=== PATIENT | female | born 1940 | race African-American/Black ===

== ENCOUNTER 2018-07-30 00:30 | Observation (INO) | payer OTHER ==
--- NOTE | 2018-07-30 01:07 | PDOC ---
History of Present Illness - General Chief Complaint: Lightheaded Stated Complaint: BLOOD PRESSURE PROBLEM Time Seen by Provider: 07/30/18 00:42 History Source: Patient Exam Limitations: No Limitations - History of Present Illness Initial Comments: 07/30/18 01:01 78 yo F with a hx of glaucoma, HTN, and osteoarthritis presents to the emergency department with shaking that began today followed by generalized weakness and "fogginess". Per the patient, she states she has been shaking but denies hx of seizures. She state she feels chills, but denies fever. Per the patient, she has had a hx of TIAs with the most recent 4-5 years ago without history of CVA. The abrupt onset of weakness was followed by confusion and frequent urinary episodes without control. 07/30/18 03:13 Past History - Past Medical History Allergies/Adverse Reactions: Allergies Allergy/AdvReac Type Severity Reaction Status Date / Time No Known Allergies Allergy Verified 07/30/18 00:38 Home Medications: Ambulatory Orders Amlodipine Besylate 10 mg PO DAILY 07/30/18 Diazepam 2 mg PO PRN PRN 07/30/18 Hydrochlorothiazide 12.5 mg PO DAILY 07/30/18 COPD: No HTN: Yes Psychiatric Problems: Yes - Suicide/Smoking/Psychosocial Hx Smoking History: Never smoked *Physical Exam - Vital Signs Last Vital Signs Temp Pulse Resp BP Pulse Ox 97.5 F L 107 H 18 161/57 L 99 07/30/18 00:36 07/30/18 00:36 07/30/18 00:36 07/30/18 00:36 07/30/18 00:36 ED Treatment Course - LABORATORY CBC & Chemistry Diagram: 07/30/18 01:15 07/30/18 01:15 *DC/Admit/Observation/Transfer Diagnosis at time of Disposition: Altered mental status Qualifiers: Altered mental status type: unspecified Qualified Code(s): R41.82 - Altered mental status, unspecified - Referrals - Patient Instructions - Post Discharge Activity
[2018-07-30] MEDS ORDERED: ACETAMINOPHEN 1000 MG/100 ML VIAL (NON FORMULARY) IVPB ONE (01:09)
[2018-07-30] MEDS ORDERED: ACETAMINOPHEN INJECTION 100 ML IVPB ONE (01:11)
[2018-07-30 01:38] LABS: EPI CELLS 0.5 /HPF (0-5/HPF); PH,URINE 7.5 (5.0-8.0); URINE APPEARANCE CLEAR; URINE BACTERIA 3.9 /hpf (NEGATIVE); URINE BILIRUBIN NEGATIVE (NEGATIVE); URINE CASTS 0 /lpf (0-8); URINE COLOR YELLOW; URINE GLUCOSE (UA) 2+ (NEGATIVE); URINE KETONE NEGATIVE (NEGATIVE); URINE LEUK ESTERASE NEGATIVE (NEGATIVE); URINE NITRITE NEGATIVE (NEGATIVE); URINE PROTEIN NEGATIVE (NEGATIVE); URINE RBC 2 /hpf (0-4); URINE UROBILINOGEN 0.2 mg/dL (0.2-1.0); URINE WBC 1 /hpf (0-5)
[2018-07-30 01:54] LABS: BASO % 1.3 % (0-2.0); EOS % 2.2 % (0-4.5); HEMATOCRIT 38.5 % (32.4-45.2); HEMOGLOBIN 12.4 GM/dL (10.7-15.3); LYMPH % 27.4 % (8-40); MCH 28.9 pg (25.7-33.7); MCHC 32.1 g/dl (32.0-36.0); MEAN CELL VOLUME 90.1 fl (80-96); MEAN PLT VOLUME 9.3 fl (7.5-11.1); MONO % 7.8 % (3.8-10.2); NEUT % 61.3 % (42.8-82.8); PLATELET COUNT 250 K/MM3 (134-434); RBC 4.27 M/mm3 (3.60-5.2); RDW 14.3 % (11.6-15.6); WHITE BLOOD COUNT 6.9 K/mm3 (4.0-10.0)
[2018-07-30 02:09] LABS: ALBUMIN 3.5 g/dl (3.4-5.0); ALK PHOS 70 U/L (45-117); ANION GAP 6 MMOL/L (8-16); BILIRUBIN,TOTAL 0.3 mg/dL (0.2-1); BLOOD UREA NITROGEN 14 mg/dL (7-18); CALCIUM 9.2 mg/dL (8.5-10.1); CHLORIDE 105 mmol/L (98-107); CO2 28 mmol/L (21-32); CREATININE 0.7 mg/dL (0.55-1.3); GLUCOSE,RANDOM 169 mg/dL (74-106); POTASSIUM 3.3 mmol/L (3.5-5.1); SGOT/AST 18 U/L (15-37); SGPT/ALT 23 U/L (13-61); SODIUM 138 mmol/L (136-145); TOT PROT 7.1 g/dl (6.4-8.2)
[2018-07-30] MEDS ORDERED: SODIUM CHLORIDE 1,000 ML IV STA (02:16)
--- NOTE | 2018-07-30 02:30 | PDOC ---
Documentation entered by Reema Chapa SCRIBE, acting as scribe for Flory Headley DO. Flory Headley DO: This documentation has been prepared by the Sammi mackey Nirvannie, SCRIBE, under my direction and personally reviewed by me in its entirety. I confirm that the documentation accurately reflects all work, treatment, procedures, and medical decision making performed by me. Attending Attestation - Resident Resident Name: Hari Reyez - ED Attending Attestation I have performed the following: I have examined & evaluated the patient, The case was reviewed & discussed with the resident, I agree w/resident's findings & plan - HPI HPI: 07/30/18 02:01 The patient is a 78 year old female, with a significant past medical history of glaucoma, HTN, and osteoarthritis, who presents to the emergency department with , body shaking and urinary frequency. She denies any chest pain or SOB. Allergies: NKDA - Physicial Exam PE: 07/30/18 02:01 Agree with resident exam. - Medical Decision Making 07/30/18 02:16 EXAM: HEAD CT WITHOUT CONTRAST HISTORY: Headache right side COMPARISON: None. FINDINGS: Involutional changes. Fairly advanced chronic microvascular changes in the cerebral white matter. No obvious infarct. However microvascular disease can obscure white matter infarcts. No hemorrhage. No mass. Osseous structures are intact. Read by: Kirby Wong MD 07/30/18 02:27 78-year-old female with varying complaints, most specifically weakness and increased urination Labs and imaging were reviewed and did not reveal a cause for patient's symptoms Plan for admission to medical service for evaluation of TIA versus altered mental status secondary to dementia
--- NOTE | 2018-07-30 04:43 | HP ---
CHIEF COMPLAINT: weakness HISTORY OF PRESENT ILLNESS: 78 yo F with a hx of glaucoma, HTN, TIA, and osteoarthritis, ?heart disease, presents to the emergency department with shaking that began today at 3pm after she ate lunch. Reports generalized weakness and her not feeling like herself. States that she felt severe anxiety because she knew that she was alone without anyone to take care of her, felt more weakness and inability to ambulate properly. At that point she took lorazepam that she was prescribed for anxiety attacks by her doctor in [place]. Reports pain in her R knee. States that this has happened before, for which she was seen in a hospital in [place] and told she had TIAs. Currently feels much better and denies chest pain, shortness of breath, nausea, vomiting, diarrhea, fevers or chills. Does report continued gait instability and mildly "off". States that she is incontinent. Recently traveled from [place]. No sick contacts. Recent Travel: PAST MEDICAL HISTORY: glaucoma, HTN, TIA, and osteoarthritis, ?heart disease, PAST SURGICAL HISTORY: back and spine surgeries, ovarian CA resection s/p hysterectomy, Social History: Smoking: denies Alcohol: denies Drugs: denies Family History: Allergies Penicillins Allergy (Verified 07/30/18 04:10) HOME MEDICATIONS: Home Medications Medication Instructions Recorded Amlodipine Besylate 10 mg PO DAILY 07/30/18 Diazepam 2 mg PO PRN PRN 07/30/18 Hydrochlorothiazide 12.5 mg PO DAILY 07/30/18 REVIEW OF SYSTEMS CONSTITUTIONAL: Absent: fever, chills, diaphoresis, generalized weakness, malaise, loss of appetite, weight change HEENT: Absent: rhinorrhea, nasal congestion, throat pain, throat swelling, difficulty swallowing, mouth swelling, ear pain, eye pain, visual changes CARDIOVASCULAR: Absent: chest pain, syncope, palpitations, irregular heart rate, lightheadedness , peripheral edema RESPIRATORY: Absent: cough, shortness of breath, dyspnea with exertion, orthopnea, wheezing, stridor, hemoptysis GASTROINTESTINAL: Absent: abdominal pain, abdominal distension, nausea, vomiting, diarrhea, constipation, melena, hematochezia GENITOURINARY: Absent: dysuria, frequency, urgency, hesitancy, hematuria, flank pain, genital pain MUSCULOSKELETAL: Absent: myalgia, arthralgia, joint swelling, back pain, neck pain SKIN: Absent: rash, itching, pallor HEMATOLOGIC/IMMUNOLOGIC: Absent: easy bleeding, easy bruising, lymphadenopathy, frequent infections ENDOCRINE: Absent: unexplained weight gain, unexplained weight loss, heat intolerance, cold intolerance NEUROLOGIC: unsteady gait, bladder incontinence Absent: headache, focal weakness or paresthesias, dizziness, seizure, mental status changes, PSYCHIATRIC: Absent: anxiety, depression, suicidal or homicidal ideation, hallucinations. PHYSICAL EXAMINATION Vital Signs - 24 hr 07/30/18 07/30/18 07/30/18 00:36 02:35 02:41 Temperature 97.5 F L 98.6 F Pulse Rate 107 H Pulse Rate [ 93 H Radial] Respiratory 18 20 Rate Blood Pressure 161/57 L Blood Pressure 140/68 [Left Arm] O2 Sat by Pulse 99 99 Oximetry (%) 07/30/18 03:51 Temperature Pulse Rate Pulse Rate [ 90 Radial] Respiratory Rate Blood Pressure Blood Pressure [Left Arm] O2 Sat by Pulse Oximetry (%) GENERAL: A&Ox3, no acute distress EYES: PERRLA, EOMI ENT: Moist mucus membranes NECK: No JVD LUNGS: CTA, no wheezes HEART: RRR, no murmurs ABDOMEN: Soft, nontender, BS present MUSCULOSKELETAL: No CVA Tenderness EXTREMITIES: 2+ pulses, no edema. NEUROLOGICAL: Cranial nerves II-XII intact. Motor strength 5/5 upper extremities, 3/5 lower extremities. shuffling unstable gait noted Laboratory Results - last 24 hr 07/30/18 07/30/18 07/30/18 01:15 01:15 01:30 WBC 6.9 RBC 4.27 Hgb 12.4 Hct 38.5 MCV 90.1 MCH 28.9 MCHC 32.1 RDW 14.3 Plt Count 250 MPV 9.3 Absolute Neuts (auto) 4.2 Neutrophils % 61.3 Lymphocytes % 27.4 Monocytes % 7.8 Eosinophils % 2.2 Basophils % 1.3 Nucleated RBC % 0 Sodium 138 Potassium 3.3 L Chloride 105 Carbon Dioxide 28 Anion Gap 6 L BUN 14 Creatinine 0.7 Est GFR (CKD-EPI)AfAm 96.18 Est GFR (CKD-EPI)NonAf 82.99 Random Glucose 169 H Calcium 9.2 Total Bilirubin 0.3 AST 18 ALT 23 Alkaline Phosphatase 70 Ammonia Creatine Kinase 77 Troponin I < 0.02 Total Protein 7.1 Albumin 3.5 TSH 2.39 Urine Color Yellow Urine Appearance Clear Urine pH 7.5 Ur Specific [place] 1.006 L Urine Protein Negative Urine Glucose (UA) 2+ H Urine Ketones Negative Urine Blood Trace Urine Nitrite Negative Urine Bilirubin Negative Urine Urobilinogen 0.2 Ur Leukocyte Esterase Negative Urine WBC (Auto) 1 Urine RBC (Auto) 2 Urine Casts (Auto) 0 U Epithel Cells (Auto) 0.5 Urine Bacteria (Auto) 3.9 07/30/18 03:24 WBC RBC Hgb Hct MCV MCH MCHC RDW Plt Count MPV Absolute Neuts (auto) Neutrophils % Lymphocytes % Monocytes % Eosinophils % Basophils % Nucleated RBC % Sodium Potassium Chloride Carbon Dioxide Anion Gap BUN Creatinine Est GFR (CKD-EPI)AfAm Est GFR (CKD-EPI)NonAf Random Glucose Calcium Total Bilirubin AST ALT Alkaline Phosphatase Ammonia 32.00 Creatine Kinase Troponin I Total Protein Albumin TSH Urine Color Urine Appearance Urine pH Ur Specific [place] Urine Protein Urine Glucose (UA) Urine Ketones Urine Blood Urine Nitrite Urine Bilirubin Urine Urobilinogen Ur Leukocyte Esterase Urine WBC (Auto) Urine RBC (Auto) Urine Casts (Auto) U Epithel Cells (Auto) Urine Bacteria (Auto) ASSESSMENT/PLAN: 78 yo F with a hx of glaucoma, HTN, TIA, and osteoarthritis, ?heart disease, presented to the emergency department for weakness and unsteadiness with anxiety #Weakness: and unsteadiness, initially was possibly due to anxiety attack as before, but we are concerned due to patient's alleged history of TIA in addition to unstead gait. -EKG shows sinus tachycardia with 1st degree AV block -CT head negative for acute process -Get MRI head and lumbar spine for weakness -physical therapy -cardiac monitoring -echocardiogram -carotid dopplers -not highly suspicious for TIA, but will give dose ASA now -lipid panel -B12/folate/RPR ordered -A1C ordered #Hypertension: patient was mildly hypertensive most recently 140/68 -continue home amlodipine 10 #Anxiety -continue valium 2mg Q4h PRN anxiety #FEN -no standing fluids -electrolytes normal -diabetic diet #Prophylaxis -heparin 5000 SubQ #Disposition -admit tele obs Visit type - Emergency Visit Emergency Visit: Yes ED Registration Date: 07/30/18 Care time: The patient presented to the Emergency Department on the above date and was hospitalized for further evaluation of their emergent condition. - New Patient This patient is new to me today: Yes Date on this admission: 07/30/18 - Critical Care Critical Care patient: No
[2018-07-30] MEDS ORDERED: diazePAM 2 MG TABLET PO PRN ×2 (05:51→06:16)
[2018-07-30] MEDS ORDERED: ASPIRIN 81 MG CHEWABLE TABLETS PO ONE (06:02)
--- NOTE | 2018-07-30 06:02 | PN ---
Teaching Attending Note Name of Resident: Kentrell Bradford ATTENDING PHYSICIAN STATEMENT I saw and evaluated the patient. I reviewed the resident's note and discussed the case with the resident. I agree with the resident's findings and plan as documented. SUBJECTIVE: Seen and examined; please refer to resident note for further historical information. Briefly, this is a 78 y/o female with a PMH as documented presenting to the ER for a host of symptoms; suddenly she had sx consistent with a panic attack (nervousness, difficulty swallowing, palpitations, full body weakness). She has had these issues before, and the issues had been more severe at that time, when she was admitted to a hospital in [place] > 1 year ago with what she tells us was a TIA. She continues to have marked gait disturbances here with shuffling which is new to her though the weakness she had is not necessarily focal. No recent back trauma, no saddle anesthesia. Has been having frequency with urine but not dysuria and unremarkable UA. No fecal intontenance, etc. She did try some diazepam for her sx at home (prescribed to her for what sounds to be panic disorder from physician in [place]) but didn't have resolution. No seizure activity. 10 sys ROS done and negative aside from HPI PMH (glacoma, HTN, OA, remote hx seizures), PSH, FH, SH reviewed Home Medications Medication Instructions Recorded Amlodipine Besylate 10 mg PO DAILY 07/30/18 Diazepam 2 mg PO PRN PRN 07/30/18 Hydrochlorothiazide 12.5 mg PO DAILY 07/30/18 OBJECTIVE: VS, labs, imaging reviewed NAD, AAO, resting comfortably in bed NC AT EOMI PERRLA RRR s1/2 no mgr Lungs CTAB, w/ sym exp NT ND +BS CN2-12 wnl, shuffling gait, R-leg hesitancy likely 2/2 msk pain Normal mood, appropriate behavior CT head prelim report with microvascular disease MRI brain and L spine pending CXR reviewed ASSESSMENT AND PLAN: Patient presented with panic attack and gait abnormality similar to episode she had 2 years ago in [place]; we are pending old records. 1) Weakness with gait abnormality -Noted to be new by patient; as sudden onset (but without focal weakness) will at least check brain MRI. Would have been outside window for any tPA by the time we were called. History of seizures noted but given lack of seizure activity makes this less likely. -Given gait issue check MRI L-spine and consult PT. -Can consider echo and carotid doppler, but as this is not presenting as a yeimy TIA with focal deficits, etc. would like to followup the MRI first. She likely had echo and dopplers down in [place] so should check those old records as well -Checking TSH, RPR, B12 -Neuro checks and seizure precautions. Consider neuro consultation and other items on ddx. 2) Panic Disorder -PRN Diazepam -Consider SNRI, etc. prior to DC alongside local psych referral. 3) Hx HTN -Verify and continue home meds. 4) Urinary frequency -Negative UA for infection; consider diabetic nephropathy.
[2018-07-30 08:19] LABS: HEMATOCRIT 36.3 % (32.4-45.2); HEMOGLOBIN 11.8 GM/dL (10.7-15.3); MCH 29.2 pg (25.7-33.7); MCHC 32.5 g/dl (32.0-36.0); MEAN CELL VOLUME 89.7 fl (80-96); MEAN PLT VOLUME 8.6 fl (7.5-11.1); PLATELET COUNT 254 K/MM3 (134-434); RBC 4.04 M/mm3 (3.60-5.2); RDW 14.6 % (11.6-15.6); WHITE BLOOD COUNT 5.2 K/mm3 (4.0-10.0)
[2018-07-30 09:13] LABS: CALCIUM 8.9 mg/dL (8.5-10.1); CREATININE 0.6 mg/dL (0.55-1.3); MAGNESIUM 2.1 mg/dL (1.8-2.4); POTASSIUM 3.4 mmol/L (3.5-5.1)
[2018-07-30] MEDS ORDERED: HYDROCHLOROTHIAZIDE 12.5 MG CAPSULE (FP) PO SCH (10:00)
[2018-07-30] MEDS ORDERED: amLODIPine BESYLATE 5 MG TABLET (FP) ONE (10:03)
[2018-07-30] MEDS ORDERED: HYDROCHLOROTHIAZIDE 25 MG TABLET (FP) ONE ×2 (10:04→10:15)
[2018-07-30] MEDS: amLODIPine BESYLATE 10 MG TABLET (FP) PO SCH (10:09)
--- NOTE | 2018-07-30 10:47 | EKG ---
Test Reason : Blood Pressure : / mmHG Vent. Rate : 107 BPM Atrial Rate : 107 BPM P-R Int : 216 ms QRS Dur : 088 ms QT Int : 342 ms P-R-T Axes : 072 -20 071 degrees QTc Int : 456 ms SINUS TACHYCARDIA WITH 1ST DEGREE A-V BLOCK RIGHT ATRIAL ENLARGEMENT BORDERLINE ECG NO PREVIOUS ECGS AVAILABLE Confirmed by SEVERO CURRIE MD ([id number]) on 07/30/2018 10:46:48 AM Referred By: Flynn SOTELO Confirmed By:SEVERO CURRIE MD
--- NOTE | 2018-07-30 13:30 | ECHO ---
Name: CINDI PALMA Exam:Adult Echocardiogram Study Date: 07/30/2018 08:50 AM Age: 78 yrs Height: 64 in Weight: 200 lb BSA: 2.0 m2 MMode/2D Measurements & Calculations IVSd: 1.1 cm Ao root diam: 2.8 cm LVIDd: 4.5 cm LA dimension: 3.4 cm LVIDs: 3.2 cm LVPWd: 0.77 cm EDV(Teich): 94.6 ml LVOT diam: 2.0 cm ESV(Teich): 41.9 ml Doppler Measurements & Calculations MV E max armin: 57.3 cm/sec Ao V2 max: 153.2 cm/sec MV A max armin: 92.3 cm/sec Ao max P.4 mmHg MV E/A: 0.62 Ao V2 mean: 97.2 cm/sec MV dec time: 0.22 sec Ao mean P.5 mmHg Ao V2 VTI: 27.1 cm BETZY(I,D): 2.9 cm2 BETZY(V,D): 2.3 cm2 LV V1 max P.4 mmHg SV(LVOT): 77.2 ml LV V1 mean P.2 mmHg LV V1 max: 115.7 cm/sec LV V1 mean: 84.4 cm/sec LV V1 VTI: 25.6 cm TR max armin: 230.1 cm/sec Med Peak E' Armin: 6.3 cm/sec TR max P.2 mmHg Med E/e': 9.0 Lat Peak E' Armin: 9.8 cm/sec Lat E/e': 5.8 Procedure A two-dimensional transthoracic echocardiogram with color flow and Doppler was performed. Left Ventricle The left ventricular size, thickness and function are normal. The left ventricular ejection fraction is normal. E/A reversal consistent with but not diagnostic of poor LV compliance. The left ventricular w all motion is normal. Right Ventricle The right ventricle is normal in size and function. Atria Normal left and right atrial size and function. Mitral Valve The mitral valve is normal in structure and function. There is no mitral valve stenosis. There is tra ce to mild mitral regurgitation. Tricuspid Valve The tricuspid valve is normal in structure and function. There is no tricuspid stenosis. There is mil d tricuspid regurgitation. Right ventricular systolic pressure is normal. Aortic Valve The aortic valve is not well visualized. No hemodynamically significant valvular aortic stenosis. No aortic regurgitation is present. Pulmonic Valve The pulmonic valve is not well visualized. Great Vessels The aortic root is normal size. Pericardium/Pleura There is no pericardial effusion. Interpretation Summary The left ventricular size, thickness and function are normal The left ventricular ejection fraction is normal. The left ventricular wall motion is normal. There is trace to mild mitral regurgitation. E/A reversal consistent with but not diagnostic of poor LV compliance MD Jacinto Mcgee 07/30/2018 01:30 PM
[2018-07-30] MEDS: HEPARIN NA (PORCINE) 5,000 UNITS/ML 1ML VIAL SQ SCH ×2 (14:06→21:42)
[2018-07-30] MEDS ORDERED: POTASSIUM CHLORIDE TABS 20 MEQ TABLET.ER (FP) PO ONE ×2 (15:15→17:06)
--- NOTE | 2018-07-30 15:19 | PN ---
Physical Exam: SUBJECTIVE: Patient seen and examined this AM. She states she is still feeling somewhat foggy with some mild dizziness, however she is feeling better today than yesterday. OBJECTIVE: Vital Signs Period Temp Pulse Resp BP Sys/[place] Pulse Ox Last 24 Hr 97.5 F-98.6 F 82-107 18-20 126-164/57-82 97-100 GEN: A&OX3, no acute distress HEENT: Moist mucus membranes HEART: Systolic murmur noted, RRR LUNGS: CTA b/l, no wheezes noted ABDOMEN: Soft, nontender to palpation NEURO: CN II-XII in tact, no focal deficits, 5/5 strength, normal sensation, ( normal gait observed by nursing staff) EXTREMITIES: No peripheral edema or calf tenderness Laboratory Results - last 24 hr 07/30/18 07/30/18 07/30/18 01:15 01:15 01:30 WBC 6.9 RBC 4.27 Hgb 12.4 Hct 38.5 MCV 90.1 MCH 28.9 MCHC 32.1 RDW 14.3 Plt Count 250 MPV 9.3 Absolute Neuts (auto) 4.2 Neutrophils % 61.3 Lymphocytes % 27.4 Monocytes % 7.8 Eosinophils % 2.2 Basophils % 1.3 Nucleated RBC % 0 Sodium 138 Potassium 3.3 L Chloride 105 Carbon Dioxide 28 Anion Gap 6 L BUN 14 Creatinine 0.7 Est GFR (CKD-EPI)AfAm 96.18 Est GFR (CKD-EPI)NonAf 82.99 Random Glucose 169 H Hemoglobin A1c % Calcium 9.2 Magnesium Total Bilirubin 0.3 AST 18 ALT 23 Alkaline Phosphatase 70 Ammonia Creatine Kinase 77 Troponin I < 0.02 Total Protein 7.1 Albumin 3.5 Triglycerides Cholesterol Total LDL Cholesterol HDL Cholesterol Vitamin B12 TSH 2.39 Urine Color Yellow Urine Appearance Clear Urine pH 7.5 Ur Specific [place] 1.006 L Urine Protein Negative Urine Glucose (UA) 2+ H Urine Ketones Negative Urine Blood Trace Urine Nitrite Negative Urine Bilirubin Negative Urine Urobilinogen 0.2 Ur Leukocyte Esterase Negative Urine WBC (Auto) 1 Urine RBC (Auto) 2 Urine Casts (Auto) 0 U Epithel Cells (Auto) 0.5 Urine Bacteria (Auto) 3.9 RPR Titer 07/30/18 07/30/18 07/30/18 03:24 08:05 08:05 WBC 5.2 RBC 4.04 Hgb 11.8 Hct 36.3 MCV 89.7 MCH 29.2 MCHC 32.5 RDW 14.6 Plt Count 254 MPV 8.6 Absolute Neuts (auto) Neutrophils % Lymphocytes % Monocytes % Eosinophils % Basophils % Nucleated RBC % Sodium Potassium Chloride Carbon Dioxide Anion Gap BUN Creatinine Est GFR (CKD-EPI)AfAm Est GFR (CKD-EPI)NonAf Random Glucose Hemoglobin A1c % 6.5 H Calcium Magnesium Total Bilirubin AST ALT Alkaline Phosphatase Ammonia 32.00 Creatine Kinase Troponin I Total Protein Albumin Triglycerides Cholesterol Total LDL Cholesterol HDL Cholesterol Vitamin B12 TSH Urine Color Urine Appearance Urine pH Ur Specific [place] Urine Protein Urine Glucose (UA) Urine Ketones Urine Blood Urine Nitrite Urine Bilirubin Urine Urobilinogen Ur Leukocyte Esterase Urine WBC (Auto) Urine RBC (Auto) Urine Casts (Auto) U Epithel Cells (Auto) Urine Bacteria (Auto) RPR Titer 07/30/18 07/30/18 08:05 08:05 WBC RBC Hgb Hct MCV MCH MCHC RDW Plt Count MPV Absolute Neuts (auto) Neutrophils % Lymphocytes % Monocytes % Eosinophils % Basophils % Nucleated RBC % Sodium 144 Potassium 3.4 L Chloride 106 Carbon Dioxide 32 Anion Gap 6 L BUN 10 Creatinine 0.6 Est GFR (CKD-EPI)AfAm 101.18 Est GFR (CKD-EPI)NonAf 87.30 Random Glucose 115 H Hemoglobin A1c % Calcium 8.9 Magnesium 2.1 Total Bilirubin AST ALT Alkaline Phosphatase Ammonia Creatine Kinase Troponin I Total Protein Albumin Triglycerides 94 Cholesterol 225 H Total LDL Cholesterol 130 H HDL Cholesterol 82 H Vitamin B12 549 TSH Urine Color Urine Appearance Urine pH Ur Specific [place] Urine Protein Urine Glucose (UA) Urine Ketones Urine Blood Urine Nitrite Urine Bilirubin Urine Urobilinogen Ur Leukocyte Esterase Urine WBC (Auto) Urine RBC (Auto) Urine Casts (Auto) U Epithel Cells (Auto) Urine Bacteria (Auto) RPR Titer Nonreactive Active Medications Generic Name Dose Route Start Last Admin Trade Name Freq PRN Reason Stop Dose Admin Amlodipine Besylate 10 mg 07/30/18 10:00 07/30/18 10:09 Norvasc - PO 10 mg DAILY HANS Administration Diazepam 2 mg 07/30/18 06:16 Valium - PO Q8H PRN ANXIETY Heparin Sodium (Porcine) 5,000 unit 07/30/18 14:00 07/30/18 14:06 Heparin - SQ 5,000 unit TID HANS Administration Hydrochlorothiazide 12.5 mg 07/30/18 10:00 07/30/18 10:09 Hctz - PO 12.5 mg DAILY HANS Administration Potassium Chloride 40 meq 07/30/18 15:15 K-Dur - PO 07/30/18 15:16 ONCE ONE ASSESSMENT/PLAN: 78 yo F with a hx of glaucoma, HTN, Panic Disorder, TIA, and osteoarthritis, ? heart disease, presented to the emergency department for weakness and unsteadiness with anxiety Weakness and Unsteady Gait -Pt states symptoms have improved at this point -continue to monitor on tele -ECHO with trace MR -Orthostatic vitals ordered -B12 pending -RPR negative -CT head without any concerning findings -PT eval pending Panic Disorder -Continue home valium for now -Pt should follow up with primary to start SSRI HTN -Continue home Norvasc and HCTZ DVT Prophylaxis -Heparin 5000 units SQ TID FEN -none -monitor and replete -Diabetic Diet Disposition Telemetry Observation Visit type - Emergency Visit Emergency Visit: Yes ED Registration Date: 07/30/18 Care time: The patient presented to the Emergency Department on the above date and was hospitalized for further evaluation of their emergent condition. - New Patient This patient is new to me today: Yes Date on this admission: 07/30/18 - Critical Care Critical Care patient: No
--- NOTE | 2018-07-30 16:02 | PN ---
Teaching Attending Note Name of Resident: Eriberto Keen ATTENDING PHYSICIAN STATEMENT I saw and evaluated the patient. I reviewed the resident's note and discussed the case with the resident. I agree with the resident's findings and plan as documented. SUBJECTIVE:seen at 1 pm no fever or chills. denies any cp or SOB. reports episodes of dizziness, like room is spinning and her head is heavy. episodes last few seconds. No LOc or shaking. usually happen when walking , she has to stop for few seconds and then resume. denies palpitations OBJECTIVE: NAD. CV: RRR. 2/6 SM at base, no radiation Lungs: CTAB Ext : no edema or erythema ABD: soft NT, Nd , NL Bs [place] neg. ASSESSMENT AND PLAN: 78 y/o lady with h/o glaucoma, HTN, OA, and TIA, who presented with anxiety attack and unsteady gait. 1- Panic attack: - consider SSRI as out p t 2- Intermittent dizziness: Neg [place] . r/o arrhythmias . r/o orthostatic hypotension - check orthostatic VS - tele till am - might need prolonged monitoring as out pt - might need neuro f/u as out pt - echo and EKG reviewed. 3- HTN : cont HCTZ and norvasc for now 4- Unsteady gait: B12, TSH, reviewed. RPR pending . CT head neg for infarct or bleed - PT eval 5- Hyperlipidemia: LDl above goal given h/o TIA. will discuss statins with her 6- H/o TIA : not sure why she is not on asa. will d/w her dispo : might dc home tomorrow PT eval pending
[2018-07-30 22:35] VITALS: BMI 32.8
[2018-07-31] MEDS: HEPARIN NA (PORCINE) 5,000 UNITS/ML 1ML VIAL SQ SCH ×3 (06:30→21:19)
[2018-07-31 06:54] LABS: HEMATOCRIT 35.7 % (32.4-45.2); HEMOGLOBIN 11.7 GM/dL (10.7-15.3); MCH 29.4 pg (25.7-33.7); MCHC 32.7 g/dl (32.0-36.0); MEAN CELL VOLUME 89.9 fl (80-96); MEAN PLT VOLUME 9.2 fl (7.5-11.1); PLATELET COUNT 248 K/MM3 (134-434); RBC 3.97 M/mm3 (3.60-5.2); WHITE BLOOD COUNT 5.3 K/mm3 (4.0-10.0)
[2018-07-31 07:12] LABS: CALCIUM 8.9 mg/dL (8.5-10.1); CREATININE 0.5 mg/dL (0.55-1.3); MAGNESIUM 2.3 mg/dL (1.8-2.4); PHOSPHOROUS 3.6 mg/dL (2.5-4.9); POTASSIUM 3.5 mmol/L (3.5-5.1)
[2018-07-31] MEDS ORDERED: POTASSIUM CHLORIDE TABS 20 MEQ TABLET.ER (FP) PO ONE (08:49)
[2018-07-31] MEDS ORDERED: PT OWN MED DRAWER 7, Y5N ONE (08:56)
[2018-07-31] MEDS: SODIUM CHLORIDE 1,000 ML IV SCH (08:56)
[2018-07-31] MEDS: amLODIPine BESYLATE 10 MG TABLET (FP) PO SCH (09:50)
[2018-07-31] MEDS: ASPIRIN 81 MG CHEWABLE TABLETS PO SCH (12:30)
--- NOTE | 2018-07-31 14:41 | PN ---
Teaching Attending Note Name of Resident: Leoncio Garcia ATTENDING PHYSICIAN STATEMENT I saw and evaluated the patient. I reviewed the resident's note and discussed the case with the resident. I agree with the resident's findings and plan as documented. SUBJECTIVE: No fever or chills. This am, she felt dizzy sitting up in the bed. episode was brief and resolved spontaneously. she felt hot and sweaty during event. OBJECTIVE: NAD. CV: RRR. 2/6 SM at base, no radiation. Lungs: CTAB Ext: no edema or erythema ABD: soft NT, Nd , NL Bs ASSESSMENT AND PLAN: 78 y/o lady with h/o glaucoma, HTN, OA, and TIA, who presented with anxiety attack and unsteady gait. 1- Panic attack: - consider SSRI as out pt 2- Intermittent dizziness: suspect orthostatic hypotension as the etiology. tele reviewed, no arrhythmias at time of event this am - start IVF. dc HCTZ - repeat Ortho VS. - might need prolonged monitoring as out pt - might need neuro f/u as out pt, if it continues after hydration 3- HTN: cont norvasc and stop HCTZ. discussed with her changing Norvasc to ACEI/ARB , she mentioned a reaction to Lisinopril in past. will defer to out pt 4- New diagnosis of DM: A1c 6.5. - education was provided - will start metformin at dc. side effects explained. she is agreeable 5- Unsteady gait: B12, TSH, RPR , CT neg . - PT eval. 5- Hyperlipidemia: - statin therapy discussed wit her. 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 - will defer to out pt 6- H/o TIA : she admit to using aspirin at home . will continue Dispo: hold discharge due to continued orthostatic hypotension.
--- NOTE | 2018-07-31 18:25 | PN ---
Physical Exam: SUBJECTIVE: Patient seen and examined this AM. She states that overall she is feeling better, however she does endorse some dizziness still which she believes happened just after receiving her heparin. OBJECTIVE: Vital Signs Period Temp Pulse Resp BP Sys/Hays Pulse Ox Last 24 Hr 98 F-98.4 F 74-101 18-20 118-166/66-85 100-100 GEN: A&OX3, no acute distress HEENT: Moist mucus membranes, small submandibular nodule noted HEART: Systolic murmur noted, RRR LUNGS: CTA b/l, no wheezes noted ABDOMEN: Soft, nontender to palpation NEURO: CN II-XII in tact, no focal deficits, 5/5 strength, normal sensation EXTREMITIES: No peripheral edema or calf tenderness Laboratory Results - last 24 hr 07/31/18 07/31/18 05:30 05:30 WBC 5.3 RBC 3.97 Hgb 11.7 Hct 35.7 MCV 89.9 MCH 29.4 MCHC 32.7 RDW 15.0 Plt Count 248 MPV 9.2 Sodium 141 Potassium 3.5 Chloride 106 Carbon Dioxide 28 Anion Gap 7 L BUN 12 Creatinine 0.5 L Est GFR (CKD-EPI)AfAm 107.44 Est GFR (CKD-EPI)NonAf 92.70 Random Glucose 97 Calcium 8.9 Phosphorus 3.6 Magnesium 2.3 Active Medications Generic Name Dose Route Start Last Admin Trade Name Freq PRN Reason Stop Dose Admin Amlodipine Besylate 10 mg 07/30/18 10:00 07/31/18 09:50 Norvasc - PO 10 mg DAILY HANS Administration Aspirin 81 mg 07/31/18 11:15 07/31/18 12:30 Asa - PO 81 mg DAILY HANS Administration Diazepam 2 mg 07/30/18 06:16 Valium - PO Q8H PRN ANXIETY Heparin Sodium (Porcine) 5,000 unit 07/30/18 14:00 07/31/18 14:30 Heparin - SQ 5,000 unit TID HANS Administration Sodium Chloride 1,000 mls @ 100 mls/hr 07/31/18 07:15 07/31/18 08:56 Normal Saline - IV 100 mls/hr ASDIR HANS Administration ASSESSMENT/PLAN: 78 yo F with a hx of glaucoma, HTN, Panic Disorder, TIA, and osteoarthritis, ? heart disease, presented to the emergency department for weakness and unsteadiness with anxiety Weakness and Unsteady Gait -Pt states symptoms have improved at this point, though still intermittently present -continue to monitor on tele -ECHO with trace MR -Positive for orthostasis, unable to tolerate repeat this afternoon due to "dizziness" -B12 549 -RPR negative -CT head without any concerning findings -Walked 200 feet with PT Panic Disorder -Continue home valium for now -Pt should follow up with primary to start SSRI HTN -Continue home Norvasc -Hold HCTZ for now -Pt endorses reaction to lisinopril in the past HLD -LDL 130 with past history of TIAs -States she is on ASA however stopped taking lipitor in the past due to muscle complaints. Also states she attempted another statin but does not know the name. DVT Prophylaxis -Heparin 5000 units SQ TID FEN -NS @ 100 cc/hr -monitor and replete -Diabetic Diet Disposition Telemetry Observation Visit type - Emergency Visit Emergency Visit: Yes ED Registration Date: 07/30/18 Care time: The patient presented to the Emergency Department on the above date and was hospitalized for further evaluation of their emergent condition. - New Patient This patient is new to me today: No - Critical Care Critical Care patient: No
[2018-08-01] MEDS: HEPARIN NA (PORCINE) 5,000 UNITS/ML 1ML VIAL SQ SCH (05:41)
[2018-08-01] MEDS: amLODIPine BESYLATE 10 MG TABLET (FP) PO SCH (11:31)
[2018-08-01] MEDS: ASPIRIN 81 MG CHEWABLE TABLETS PO SCH (11:31)
[2018-08-01] MEDS: SODIUM CHLORIDE 1,000 ML IV SCH (11:32)
[2018-08-01 11:48] VITALS: BP 136/82; PULSE 88; TEMP 97.9
--- NOTE | 2018-08-01 12:08 | DS ---
Physical Exam: SUBJECTIVE: Patient seen and examined this AM. She states she is feeling very well today with no complaints and would like to go home if possible. OBJECTIVE: Vital Signs Period Temp Pulse Resp BP Sys/Hays Pulse Ox Last 24 Hr 97.9 F-98.6 F 79-90 17-18 133-159/68-84 100-100 PHYSICAL EXAM GEN: A&OX3, no acute distress HEENT: Moist mucus membranes, small submandibular nodule noted HEART: Systolic murmur noted, RRR LUNGS: CTA b/l, no wheezes noted ABDOMEN: Soft, nontender to palpation NEURO: CN II-XII in tact, no focal deficits, 5/5 strength, normal sensation EXTREMITIES: No peripheral edema or calf tenderness LABS HOSPITAL COURSE: Date of Admission:07/30/18 Date of Discharge: 08/01/18 HPI on Admission: 78 yo F with a hx of glaucoma, HTN, TIA, and osteoarthritis, ?heart disease, presents to the emergency department with shaking that began today at 3pm after she ate lunch. Reports generalized weakness and her not feeling like herself. States that she felt severe anxiety because she knew that she was alone without anyone to take care of her, felt more weakness and inability to ambulate properly. At that point she took lorazepam that she was prescribed for anxiety attacks by her doctor in [place]. Reports pain in her R knee. States that this has happened before, for which she was seen in a hospital in [place] and told she had TIAs. Currently feels much better and denies chest pain, shortness of breath, nausea, vomiting, diarrhea, fevers or chills. Does report continued gait instability and mildly "off". States that she is incontinent. Recently traveled from [place]. No sick contacts. Hospital Course: She was monitored on tele which revealed no abnormal findings. She was found to be orthostatic, HCTZ was held during her stay and on discharge. She was given fluids and improved over the course of 2 days. orthostatic vitals improved. She was informed that her LDL was elevated and with her history of TIAs it was recommended she start Lipitor however she states she has taken multiple different statins in the past with muscle complaints. She was found to have an A1C of 6.5 and diagnosed with NIDDM. She was started on Metformin ER 500 mg PO Daily on discharge and informed of the importance of following up with her primary care physician. Her HCTZ was held on discharge. She was recommended to a client relations associate for further management of her blood pressure as her HCTZ was held and she is unable to start lisinopril at this time as she states she has taken it in the past and it was stopped though she does not recall why. Minutes to complete discharge: 40 Discharge Summary Reason For Visit: ALTERED MENTAL STATUS Current Active Problems Aan-dzldtsb-[id number] diabetes mellitus without complications (Acute) Panic attacks (Chronic) Condition: Improved - Instructions Diet, Activity, Other Instructions: You were seen in the hospital due to weakness and difficulty walking. You were evaluated and watched on a heart monitor during your stay. An ultrasound of your heart was done as well. There were no concerning findings during your admission and you improved to where you are stable to be discharged home. You Do not take Hydrochlorathiazide. Continue taking your Amlodipine. You should begin taking Metformin 500 mg one tablet per day You should continue to take all of your other medications as they were prescribed to you by your doctor. You should follow up with your doctor within 1-2 weeks of discharge from the hospital. The information for the clinic here has been provided to you in case you are unable to visit your doctor soon. Please follow up with Dr. Artemio Altman, Cardiology. You will need to adjust your medications, especially your blood pressure and cholesterol medications. If you have any chest pain, difficulty breathing, or any other concerning symptoms, you should return to the emergency room or be evaluated by your doctor. you need cholesterol medications but this need to be discussed with your doctor due to previous reaction to the medications you might be better served with Lisinopril for your blood pressure but due to previous reaction , please follow and discuss with your doctor you have diabetes. please take low fat , low sugar diet. walk daily take metformin daily and follow with your doctor check your bloop pressure daily in am , and report to your doctor. if Bloop pressure is > 160 call Md right away, or if it is < 100. we prescribed yo a bloopd pressure cuff Referrals: Ben Braxton MD [Staff Physician] - 08/04/18 (Phone number: [phone]) Artemio Altman MD [Staff Physician] - Disposition: VNS/HOME HEALTH CARE - Home Medications Comprehensive Discharge Medication List: Ambulatory Orders Amlodipine Besylate 0.5 - 1 tab PO DAILY 07/30/18 Diazepam 2 mg PO DAILY PRN 07/30/18 Diclofenac Sodium [Diclofenac Sodium ER] 100 mg PO DAILY 07/30/18 Latanoprost 0.005% Eye Drops [Xalatan 0.005% Eye Drops -] 1 drop OU HS 07/30/18 Timolol 0.5% [Timoptic 0.5%] 1 drop OU BID 07/30/18 Aspirin [ASA -] 81 mg PO DAILY 07/31/18 Metformin HCl [Metformin HCl ER] 500 mg PO DAILY #30 tab.er.24h 08/01/18 This patient is new to me today: No Emergency Visit: Yes ED Registration Date: 07/30/18 Care time: The patient presented to the Emergency Department on the above date and was hospitalized for further evaluation of their emergent condition. Critical Care patient: No - Discharge Referral Referred to [facility] Med [facility] No
--- NOTE | 2018-08-01 14:27 | PN ---
Teaching Attending Note Name of Resident: Leoncio Garcia ATTENDING PHYSICIAN STATEMENT I saw and evaluated the patient. I reviewed the resident's note and discussed the case with the resident. I agree with the resident's findings and plan as documented. SUBJECTIVE: No fever or chills . NO LIND , no CP , no dizziness. OBJECTIVE: NAD. CV: RRR. 2/6 SM at base, no radiation. Lungs: CTAB Ext: no edema or erythema ASSESSMENT AND PLAN: 78 y/o lady with h/o glaucoma, HTN, OA, and TIA, who presented with anxiety attack and unsteady gait. 1- Panic attack: - consider SSRI as out pt 2- Orthostatic hypotension : resolved done by team today tele reviewed, no events -dc IVF - will not resme HCTZ - if dizziness recur, then might need prolonged cardiac monitoring 3- HTN: cont norvasc and stop HCTZ. out pt discussion about the use of ARB/ACEI . ( reaction in past ) 4- New diagnosis of DM: A1c 6.5. - education was provided - start metformin 5- Unsteady gait: B12, TSH, RPR , CT neg . 5- Hyperlipidemia: -he had myopathy with lipitor in past. - will defer to out pt 6- H/o TIA : cont ASA Dispo: dc home today. VNS .
== END 2018-08-01 13:00 | disposition home health service (06) ==
LOC: JER 00:30 → JERBED 03:43 → J2W 20:58
PROVIDERS: ADMIT Internal Medicine; ATTEND Internal Medicine
PROC: 3E033NZ Introduction of Analgesics, Hypnotics, Sedatives into Peripheral Vein, Percutaneous Approach (ICD-10-PCS; principal; 2018-07-30)
PROC: 3E0337Z Introduction of Electrolytic and Water Balance Substance into Peripheral Vein, Percutaneous Approach (ICD-10-PCS; 2018-07-30)
PROC: 3E013GC Introduction of Other Therapeutic Substance into Subcutaneous Tissue, Percutaneous Approach (ICD-10-PCS; 2018-07-30)
DX: R41.82 Altered mental status, unspecified (principal); F41.0 Panic disorder [episodic paroxysmal anxiety]; R53.1 Weakness; E11.9 Type 2 diabetes mellitus without complications; R26.89 Other abnormalities of gait and mobility; E78.5 Hyperlipidemia, unspecified; R42 Dizziness and giddiness; I10 Essential (primary) hypertension; H40.9 Unspecified glaucoma; M19.90 Unspecified osteoarthritis, unspecified site; Z86.73 Personal history of transient ischemic attack (TIA), and cerebral infarction without residual deficits
CPT/HCPCS: 36415; 70450-TC; 71045-TC-FY; 80048; 80053; 80061; 81003; 82140; 82550; 82607; 83036; 83721; 83735; 84100; 84443; 84484; 85025; 85027; 86593; 87086; 93005; 93010; 93306-TC; 93880-TC; 96361; 96372; 96374; 97116-GP; 97162-GP; 99285-25; G0378; J0131; J1644; J7030